=== PATIENT | female | born 1985 | race African-American/Black ===

== ENCOUNTER 2016-06-16 07:43 | Emergency (ER) | payer OTHER ==
[~2016-06-16] VITALS: Ht 175.3 cm; Wt 85.0 kg
[~2016-06-16 07:43] MED LIST: Z.0.NO CURRENT MEDS
[2016-06-16 07:47] VITALS: BP 126/63; PULSE 98; RESP 17; TEMP 98; O2SAT 98
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
[2016-06-16] MEDS ORDERED: ACETAMINOPHEN/HYDROcodone 325 MG/5 MG TAB PO ONE (09:30)
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
[2016-06-16] MEDS ORDERED: CYCL5TAB PO (10:25)
[2016-06-16] MEDS ORDERED: NAPR500T PO (10:25)
== END 2016-06-16 11:05 | disposition home or self-care (01) ==
LOC: NETRI 07:43
DX: S16.1XXA Strain of muscle, fascia and tendon at neck level, initial encounter (principal); S20.212A Contusion of left front wall of thorax, initial encounter; V49.40XA Driver injured in collision with unspecified motor vehicles in traffic accident, initial encounter
CPT/HCPCS: 71020; 72125